=== PATIENT | female | born 1950 | race Caucasian/White ===

== ENCOUNTER 2016-12-21 15:32 | Emergency (ER) | payer MEDICARE, BC ==
[2016-12-21] MEDS ORDERED: ASPIRIN 81 MG CHEWABLE TABLET PO ONE (16:23)
[2016-12-21 16:59] LABS: BASO % 0.7 % (0-6); EOS % 4.2 % (0-6); GRAN % 73.1 % (47-80); HEMATOCRIT 49.2 % (35.0-47.0); HEMOGLOBIN 16.5 gm/dl (11.6-16.0); LYMPH % 16.1 % (16-45); MEAN CORPUSCULAR HEMOGLOBIN 29.5 pg (27-33); MEAN CORPUSCULAR HGB CONC 33.5 g/dl (32-36); MEAN PLATELET VOLUME 10.4 fl (7.4-10.4); MONO % 5.9 % (0-9); PLATELET COUNT 288 K/uL (130-400); RED BLOOD COUNT 5.59 M/uL (3.80-5.40); RED CELL DISTRIBUTION WIDTH 13.3 % (11.5-14.5); WHITE BLOOD COUNT W/O DIFF 8.1 K/uL (4.2-12.2)
[2016-12-21 17:12] LABS: ALB/GLOB RATIO 1.6 (1.1-1.8); ALBUMIN 4.5 gm/dL (3.5-5.0); ALKALINE PHOSPHATASE 108 U/L (38-126); ALT/SGPT 64 U/L (9-52); ANION GAP 14.5 (7-16); AST/SGOT 35 U/L (14-36); BILIRUBIN,TOTAL 0.54 mg/dL (0.2-1.3); BLOOD UREA NITROGEN 11 mg/dL (7-17); CARBON DIOXIDE 27.5 mmol/L (22-30); CREATINE PHOSPHOKINASE 55 U/L (30-135); CREATININE 0.8 mg/dL (0.52-1.04); EST GLOMERULAR FILTRATION RATE > 60 ml/min; GLUCOSE,RANDOM 114 mg/dL (70-110); TOTAL PROTEIN 7.4 gm/dL (6.3-8.2)
[2016-12-21 17:23] LABS: CKMB 0.7 ug/L (0-6); TROPONIN I < 0.012 ng/mL (0.00-0.034)
--- NOTE | 2016-12-21 18:22 | Emergency Department Record ---
History of Present Illness - General Chief Complaint: Back Pain/Injury Stated Complaint: BACK/CHEST/EAR PAIN Time Seen by Provider: 12/21/16 16:19 Source: Patient Mode of Arrival: Ambulatory Limitations: No limitations - History of Present Illness Initial Comments: pt had sudden onset of pain in back that went through to chest that lasted 30 miutes. it was 8/10 and she had never had anything like it before. she also had pain in her right ear that is also resolved. she had no nausea, sob,and no other symptoms. Onset/Timin -: Minutes(s) Similar Symptoms Previously: No Place: Home Radiation: Abdomen Severity: Moderate Severity scale (1-10): 3 Quality: Aching Consistency: Constant, Now resolved Improves With: None Worsens With: None Associated Symptoms: Cough - Related Data Home Medications Medication Instructions Recorded Confirmed Last Taken Nebivolol HCl [Bystolic] 10 mg PO DAILY 03/27/14 12/21/16 12/21/16 Rosuvastatin Calcium [Crestor] 10 mg PO DAILY 03/27/14 12/21/16 12/21/16 Valsartan/Hydrochlorothiazide 1 each PO DAILY 03/27/14 12/21/16 12/21/16 [Diovan Hct 320-25 mg Tablet] Aspirin 81 mg PO DAILY 12/21/16 12/21/16 12/21/16 Cholecalciferol (Vitamin D3) 2,000 unit PO DAILY 12/21/16 12/21/16 12/21/16 [Vitamin D3] Allergies Allergy/AdvReac Type Severity Reaction Status Date / Time Penicillins Allergy unknown Verified 03/21/14 12:20 Travel Screening - Travel/Exposure Within Last 30 Days Have you traveled within the last 30 days?: No - Travel Symptoms Symptom Screening: None Review of Systems Reviewed: No additional complaints except as noted below Constitutional: Reports: As per HPI. Denies: Chills, Fever, Malaise, Night sweats, Weakness, Weight change Eyes: Reports: As per HPI. Denies: Eye discharge, Eye pain, Photophobia, Vision change ENT: Reports: As per HPI. Denies: Congestion, Dental pain, Ear pain, Epistaxis , Hearing loss, Throat pain Respiratory: Reports: As per HPI. Denies: Cough, Dyspnea, Hemoptysis, Stridor, Wheezes Cardiovascular: Reports: As per HPI. Denies: Arrhythmia, Chest pain, Dyspnea on exertion, Edema, Murmurs, Orthopnea, Palpitations, Paroxysmal nocturnal dyspnea, Rheumatic Fever, Syncope Endocrine: Reports: As per HPI. Denies: Fatigue, Heat or cold intolerance, Polydipsia, Polyuria Gastrointestinal: Reports: As per HPI. Denies: Abdominal pain, Constipation, Diarrhea, Hematemesis, Hematochezia, Melena, Nausea, Vomiting Genitourinary: Reports: As per HPI. Denies: Abnormal menses, Discharge, Dyspareunia, Dysuria, Frequency, Hematuria, Incontinence, Retention, Urgency Musculoskeletal: Reports: As per HPI. Denies: Arthralgia, Back pain, Gout, Joint swelling, Myalgia, Neck pain Skin: Reports: As per HPI. Denies: Bruising, Change in color, Change in hair/ nails, Lesions, Pruritus, Rash Neurological: Reports: As per HPI. Denies: Abnormal gait, Confusion, Headache, Numbness, Paresthesias, Seizure, Tingling, Tremors, Vertigo, Weakness Psychiatric: Reports: As per HPI. Denies: Anxiety, Auditory hallucinations, Depression, Homicidal thoughts, Suicidal thoughts, Visual hallucinations Hematological/Lymphatic: Reports: As per HPI. Denies: Anemia, Blood Clots, Easy bleeding, Easy bruising, Swollen glands Past Medical History - SOCIAL HISTORY Smoking Status: Current every day smoker - RESPIRATORY Hx Respiratory Disorders: No - CARDIOVASCULAR Hx Cardio Disorders: Yes Hx Hypertension: Yes Comment:: high cholesterol - NEURO Hx Neuro Disorders: No - GI Hx GI Disorders: Yes Comment:: colon cancer - Hx Genitourinary Disorders: No - ENDOCRINE Hx Endocrine Disorders: No - MUSCULOSKELETAL Hx Musculoskeletal Disorders: Yes Hx Arthritis: Yes Hx Fibromyalgia: Yes - PSYCH Hx Psych Problems: No - HEMATOLOGY/ONCOLOGY Hx Hematology/Oncology Disorders: Yes Hx Cancer: Yes (Colon) Hx Chemotherapy: No Hx Radiation Therapy: No Family Medical History Any Significant Family History?: Yes Hx Cancer: Grandparents *Cancer Comment: colon Hx Heart Disease: Mother, Brother/Sister Hx HTN: Mother Physical Exam - General General Appearance: Alert, Oriented x3, Cooperative, No acute distress - Head Head exam: Normal inspection - Eye Eye exam: Normal appearance, PERRL, EOMI Pupils: Normal accommodation - ENT ENT exam: Normal exam, Mucous membranes moist, Normal external ear exam, Normal orophraynx, TM's normal bilaterally Ear exam: Normal external inspection. negative: External canal tenderness Nasal Exam: Normal inspection. negative: Discharge, Sinus tenderness Mouth exam: Normal external inspection, Tongue normal Teeth exam: Normal inspection. negative: Dental caries Throat exam: Normal inspection. negative: Tonsillar erythema, Tonsillar exudate - Neck Neck exam: Normal inspection, Full ROM. negative: Tenderness - Respiratory Respiratory exam: Normal lung sounds bilaterally. negative: Respiratory distress - Cardiovascular Cardiovascular Exam: Regular rate, Normal rhythm, Normal heart sounds - GI/Abdominal GI/Abdominal exam: Soft, Normal bowel sounds. negative: Tenderness - Rectal Rectal exam: Deferred - exam: Deferred - Extremities Extremities exam: Normal inspection, Full ROM, Normal capillary refill. negative: Tenderness - Back Back exam: Reports: Normal inspection, Full ROM. Denies: Muscle spasm, Rash noted, Tenderness - Neurological Neurological exam: Alert, CN II-XII intact, Normal gait, Oriented X3 - Psychiatric Psychiatric exam: Normal affect, Normal mood - Skin Skin exam: Dry, Intact, Normal color, Warm Course Vital Signs 12/21/16 12/21/16 12/21/16 15:39 16:56 17:40 Temperature 97.6 F Pulse Rate 77 60 Pulse Rate [ 66 Design Technician ] Respiratory 12 16 18 Rate Blood Pressure 134/84 Blood Pressure 132/80 [Right Arm] Pulse Ox 98 100 99 - Reevaluation(s) Reevaluation #1: 12/21/16 18:53 care is being assumed by dr plunkett pending a 4 hr troponin Medical Decision Making - Lab Data Result diagrams: 12/21/16 16:45 12/21/16 16:45 Lab Results 12/21/16 12/21/16 12/21/16 Range/Units 16:45 16:45 16:45 WBC 8.1 (4.2-12.2) K/uL RBC 5.59 H (3.80-5.40) M/uL Hgb 16.5 H (11.6-16.0) gm/dl Hct 49.2 H (35.0-47.0) % MCV 88.0 (81-97) fl MCH 29.5 (27-33) pg MCHC 33.5 (32-36) g/dl RDW 13.3 (11.5-14.5) % Plt Count 288 (130-400) K/uL MPV 10.4 (7.4-10.4) fl Gran % 73.1 (47-80) % Lymphocytes % 16.1 (16-45) % Monocytes % 5.9 (0-9) % Eosinophils % 4.2 (0-6) % Basophils % 0.7 (0-6) % D-Dimer 0.27 (0-0.59) mg/L FEU Sodium 139 (136-145) mmol/L Potassium 3.6 (3.5-5.1) mmol/L Chloride 97 L (98-107) mmol/L Carbon Dioxide 27.5 (22-30) mmol/L Anion Gap 14.5 (7-16) BUN 11 (7-17) mg/dL Creatinine 0.8 (0.52-1.04) mg/dL Estimated GFR > 60 ml/min Random Glucose 114 H (70-110) mg/dL Calcium 10.1 (8.5-10.1) mg/dL Total Bilirubin 0.54 (0.2-1.3) mg/dL AST 35 (14-36) U/L ALT 64 H (9-52) U/L Alkaline Phosphatase 108 (38-126) U/L Creatine Kinase 55 (30-135) U/L CK-MB (CK-2) 0.7 (0-6) ug/L Myoglobin 54.1 (0.0-61.5) ng/mL Troponin I < 0.012 (0.00-0.034) ng/mL Total Protein 7.4 (6.3-8.2) gm/dL Albumin 4.5 (3.5-5.0) gm/dL Globulin 2.9 (1.4-4.8) gm/dL Albumin/Globulin Ratio 1.6 (1.1-1.8) Disposition Clinical Impression: Lung nodule Chest pain Qualifiers: Chest pain type: other chest pain Qualified Code(s): R07.89 - Other chest pain ; R07.8 - Other chest pain Condition: (1) Good Instructions: Chest Pain (ED), Pulmonary Nodules (ED) Additional Instructions: follow up with family doctor for further evaluation tomorrow. return sooner if worse. Forms: Patient Portal Access
--- NOTE | 2016-12-24 14:54 | RADIOLOGY REPORT ---
EXAM: CHEST, TWO VIEWS HISTORY: COUGH. TECHNIQUE: Frontal and lateral views of the chest were obtained. Comparison: None. FINDINGS: The heart size is normal. Osteopenia. Nodular pleural based density in the lateral right hemithorax measuring 3.5 x 2.0 cm. This is nonspecific. The lungs are otherwise clear. No pneumothorax. IMPRESSION: NONSPECIFIC PLEURAL BASED NODULE IN THE LATERAL RIGHT HEMITHORAX COULD BE FOLLOWED NONEMERGENTLY WITH CT OF THE CHEST. NO ACUTE CARDIOPULMONARY PROCESS. JOB NUMBER: [id number] [facility]
== END 2016-12-21 20:39 | disposition home or self-care (01) ==
LOC: ER 15:32
DX: R91.1 Solitary pulmonary nodule (principal); R07.89 Other chest pain; R05 Cough; I10 Essential (primary) hypertension; F17.210 Nicotine dependence, cigarettes, uncomplicated
CPT/HCPCS: 71020; 80053; 82550; 82553; 83874; 84484; 85025; 85379; 93005; 99284

== ENCOUNTER 2018-04-30 12:39 | Day surgery (SDC) | payer MEDICARE, BC ==
[2018-04-30] MEDS ORDERED: PROPOFOL 10 MG/ML VIAL IV ONE (12:40)
[2018-04-30] MEDS ORDERED: LIDOCAINE 2% MDV (20MG/ML) 20ML VIAL IV ONE (12:40)
--- NOTE | 2018-05-03 14:00 | Operative Note ---
DATE OF SURGERY: 04/30/2018 SURGEON: Cari Hogan MD OPERATION: COLONOSCOPY. INDICATIONS: This is a 67-year-old female with history of colon polyp who presented for surveillance colonoscopy. POSTOPERATIVE DIAGNOSES: 1. An 8 mm sessile polyp in the ileocolonic anastomosis site, status post snare polypectomy. 2. Otherwise normal colon. ANESTHESIA: Sedation is per Anesthesia. Pulse oximetry was monitored throughout the procedure to maintain O2 saturation of 90% or greater. Supplemental oxygen was administered via nasal cannula. Cardiac and vital signs were monitored throughout the duration of the procedure, and they were stable. The procedure of colonoscopy and risks and alternatives of the procedure, including the risk of bleeding and perforation, among others, were explained to the patient who voiced understanding and agreed to have the procedure done. Physical examination was performed, and the patient was found stable for sedation. PROCEDURE: The patient was placed in the left lateral position. Sedation was initiated. A digital rectal exam was performed and showed some mild external hemorrhoids with no palpable rectal masses. An Olympus PCF-180AL colonoscope was then inserted into the rectum under direct visualization. It was advanced to the distal ileal mucosa without any difficulty. The ileocolonic anastomosis was identified and photographed. The colonic mucosa was carefully examined upon introduction of the colonoscope. Along the anastomosis site was an 8 mm sessile polyp that was noted and was removed by cold snare. There were no other lesions noted. The colonoscope was then withdrawn while carefully examining the colonic mucosal surfaces. No lesions were noted. In the rectum, retroflexion was performed and grade 1 internal hemorrhoids were noted. The colonoscope was then withdrawn and the procedure was terminated. The patient tolerated the procedure well without any immediate complications. She remained with stable vital signs and was transferred to the recovery room. RECOMMENDATIONS: 1. We will follow up on the biopsies. 2. The patient is to have a repeat colonoscopy in 2 or 3 years. Thank you for allowing me to participate in the care of your patient. CC: DO QUIQUE Whiet
== END 2018-04-30 14:45 | disposition home or self-care (01) ==
LOC: HOP 12:39
PROVIDERS: ATTEND Internal Medicine Gastroenterology
DX: Z12.11 Encounter for screening for malignant neoplasm of colon (principal); Z86.010 Personal history of colon polyps; D12.5 Benign neoplasm of sigmoid colon; I10 Essential (primary) hypertension; E78.00 Pure hypercholesterolemia, unspecified